=== PATIENT | female | born 1945 | race Hispanic/Latino ===

== ENCOUNTER 2017-07-28 06:45 | Day surgery (SDC) | payer OTHER, MEDICARE ==
[2017-07-26 11:20] VITALS: BP 124/59
[2017-07-26 11:28] LABS: BASOPHILS % (AUTO) 0.6 % (0.0-5.0); EOSINOPHILS % (AUTO) 1.4 % (0.0-8.0); HEMATOCRIT 40.5 % (36-48); LYMPHOCYTES % (AUTO) 26.9 % (21.0-51.0); MEAN CORPUSCULAR HEMOGLOBIN 30.4 pg (27.0-33.0); MEAN CORPUSCULAR HGB CONC 35.2 g/dL (32.0-36.0); MEAN CORPUSCULAR VOLUME 86.2 fL (79-99); MONOCYTES % (AUTO) 4.4 % (3.0-13.0); NEUTROPHILS % (AUTO) 66.7 % (40.0-77.0); PLATELET COUNT (AUTO) 334 K/uL (130-400); WHITE BLOOD COUNT (AUTO) 7.7 K/uL (4.8-10.8)
[2017-07-26 11:35] LABS: CREATININE 0.7 mg/dL (0.5-1.5)
[2017-07-26 11:45] LABS: INR 1.03 (0.85-1.15); PARTIAL THROMBOPLASTIN TIME 28.5 SEC (26.3-35.5); PROTHROMBIN TIME 10.8 SEC (9.6-11.6)
[2017-07-28] VITALS (11 sets, daily range): BP systolic 99–115; BP diastolic 40–64
[~2017-07-28] VITALS: Ht 160 cm; Wt 73.5 kg
[~2017-07-28 06:45] MED LIST: ASPI-1181 PO; CLON0.5T4 PO; DULO60CA63 PO; HYDR-2534 PO; INS7030 SQ; LEVO75TA10 PO; LISI2.5T2 PO; MELO-108 PO; METO25TA6 PO; MONT10TA24 PO; NAPR-1023 PO; OMEP40CA37 PO; PRAV40TA3 PO
[2017-07-28] MEDS ORDERED: SODIUM CHLORIDE 0.9% 1000ML 1,000 ML IV ONE (07:28)
[2017-07-28] MEDS ORDERED: INSULIN HUMULIN R 100 UNIT/ML 3ML IV SCH (09:00)
[2017-07-28] MEDS ORDERED: INSULIN HUMULIN R 100 UNIT/ML 3ML ONE (09:01)
[2017-07-28] MEDS ORDERED: BUPIVACAINE/PF 0.25% 30ML VIAL IJ ONE (10:10)
[2017-07-28] MEDS ORDERED: CEFAZOLIN 1GM / D5W 50ML 150 ML ONE (10:11)
[2017-07-28] MEDS ORDERED: LIDOCAINE HCL 1% MDV 50ML VIAL ONE (10:11)
[2017-07-28] MEDS ORDERED: MORPHINE SULFATE 4 MG/1ML SYG ONE (10:34)
[2017-07-28] MEDS ORDERED: ACETAMINOPHEN 325 MG TAB PO PRN ×2 (11:15)
[2017-07-28] MEDS ORDERED: ONDANSETRON HCL 4 MG/2 ML VIAL IV PRN (11:15)
== END 2017-07-28 15:35 | disposition home or self-care (01) ==
LOC: DAH 06:45
PROVIDERS: ATTEND Internal Medicine Cardiovascular Disease
DX: G45.9 Transient cerebral ischemic attack, unspecified (principal); I47.1 Supraventricular tachycardia; I48.91 Unspecified atrial fibrillation; Z79.84 Long term (current) use of oral hypoglycemic drugs; Z79.899 Other long term (current) drug therapy; Z79.4 Long term (current) use of insulin; I10 Essential (primary) hypertension; E78.5 Hyperlipidemia, unspecified; E11.9 Type 2 diabetes mellitus without complications; E03.9 Hypothyroidism, unspecified; F41.9 Anxiety disorder, unspecified; Z95.5 Presence of coronary angioplasty implant and graft; Z90.49 Acquired absence of other specified parts of digestive tract; Z90.710 Acquired absence of both cervix and uterus
CPT/HCPCS: 33282; 36415; 71045; 80048; 82948 ×2; 85025; 85610; 85730; 93005; A4606; C1764; J0690; J1815; J2270; J3490 ×2; J7030; 99152

== ENCOUNTER → 2018-06-29 | Outpatient (CLI) | payer MEDICARE ==
[~2018-06-29] MED LIST changes: +CLON0.5T12 PO; -CLON0.5T4 PO; +REGADENOSON 0.4 MG/5 ML PF SYG IVP SCH
== END | disposition home or self-care (01) ==
LOC: SHCH 07:40
PROVIDERS: ATTEND Internal Medicine Cardiovascular Disease
DX: R07.9 Chest pain, unspecified (principal)
CPT/HCPCS: 78452; 93017; 96374; A9500 ×2; J2785

== ENCOUNTER 2020-09-09 06:07 | Observation (INO) | payer OTHER, MEDICARE ==
[~2020-09-09] VITALS: Ht 160 cm; Wt 67.6 kg
[~2020-09-09 06:07] MED LIST changes: -ASPI-1181 PO; +ASPI-1443 PO; -CLON0.5T12 PO; +CLON0.5T4 PO; -DULO60CA63 PO; +DULO60CA64 PO; -HYDR-2534 PO; +HYDR50TA PO; -MONT10TA24 PO; +MONT10TA32 PO; +OMEP40CA13 PO; -OMEP40CA37 PO; -REGADENOSON 0.4 MG/5 ML PF SYG IVP SCH
[2020-09-09 06:23] LABS: BASOPHILS % (AUTO) 0.4 % (0.0-5.0); EOSINOPHILS % (AUTO) 3.5 % (0.0-8.0); HEMATOCRIT 43.5 % (36-48); LYMPHOCYTES % (AUTO) 31.1 % (21.0-51.0); MEAN CORPUSCULAR HGB CONC 33.1 g/dL (32.0-36.0); MEAN CORPUSCULAR VOLUME 87.5 fL (79-99); MONOCYTES % (AUTO) 7.2 % (3.0-13.0); NEUTROPHILS % (AUTO) 57.5 % (40.0-77.0); PLATELET COUNT (AUTO) 270 K/uL (130-400); RED BLOOD CELL COUNT(AUTO) 4.97 MIL/uL (4.00-5.50); RED CELL DISTRIBUTION WIDTH 12.4 % (11.0-15.5); WHITE BLOOD COUNT (AUTO) 6.8 K/uL (4.8-10.8)
[2020-09-09 06:38] LABS: INR 1.02 (0.85-1.15); PROTHROMBIN TIME 11.1 SEC (9.6-11.6)
[2020-09-09 06:39] LABS: PARTIAL THROMBOPLASTIN TIME 26.1 SEC (26.3-35.5)
[2020-09-09 06:42] LABS: ALBUMIN 3.6 g/dL (3.5-5.0); BILIRUBIN,TOTAL 0.6 mg/dL (0.2-1.0); CREATININE 0.6 mg/dL (0.5-1.5); POTASSIUM 3.3 mmol/L (3.5-5.1); TOTAL PROTEIN, SERUM 6.6 g/dL (6.0-8.3)
[2020-09-09] MEDS ORDERED: ACETAMINOPHEN 325 MG TAB PO PRN (08:15)
[2020-09-09] MEDS ORDERED: GLUCAGON 1MG KIT 1 MG ML IM PRN (08:15)
[2020-09-09] MEDS ORDERED: ONDANSETRON HCL 4 MG/2 ML VIAL IVP PRN (08:15)
[2020-09-09] MEDS ORDERED: HYDROMORPHONE HCL 0.5 MG/0.5 ML ML IVP PRN (08:15)
[2020-09-09] MEDS ORDERED: DEXTROSE 50%-WATER 50 ML DISP.SYRIN IV PRN (08:15)
[2020-09-09] MEDS ORDERED: ASPIRIN 81MG TAB.CHEW ONE (08:27)
[2020-09-09] MEDS ORDERED: PANTOPRAZOLE 40 MG/VIAL ONE (08:28)
[2020-09-09] MEDS: PANTOPRAZOLE 40 MG/VIAL IVP SCH (09:00)
[2020-09-09] MEDS: ASPIRIN 81 MG EC TAB PO SCH (09:00)
[2020-09-09] MEDS ORDERED: ACETAMINOPHEN 325 MG TAB ONE (10:34)
[2020-09-09] MEDS: INSULIN R PO SS1 SQ SCH ×3 (11:30→21:00)
[2020-09-09 14:22] LABS: CREATINE KINASE, TOTAL 43 U/L (21-232); MYOGLOBIN 35 ng/mL (10-92); TROPONIN I < 0.04 ng/mL (0.00-0.06)
[2020-09-09 23:28] LABS: CREATINE KINASE, TOTAL 39 U/L (21-232); MYOGLOBIN 36 ng/mL (10-92); TROPONIN I < 0.04 ng/mL (0.00-0.06)
[2020-09-09] MEDS ORDERED: HYDROMORPHONE HCL 0.5 MG/0.5 ML ML ONE (23:32)
[2020-09-10 04:42] LABS: BASOPHILS % (AUTO) 0.3 % (0.0-5.0); EOSINOPHILS % (AUTO) 2.1 % (0.0-8.0); HEMATOCRIT 42.5 % (36-48); MEAN CORPUSCULAR HEMOGLOBIN 29.4 pg (27.0-33.0); MEAN CORPUSCULAR HGB CONC 33.4 g/dL (32.0-36.0); MONOCYTES % (AUTO) 6.7 % (3.0-13.0); NEUTROPHILS % (AUTO) 58.5 % (40.0-77.0); PLATELET COUNT (AUTO) 260 K/uL (130-400); RED BLOOD CELL COUNT(AUTO) 4.83 MIL/uL (4.00-5.50); RED CELL DISTRIBUTION WIDTH 12.3 % (11.0-15.5)
[2020-09-10 05:07] LABS: CREATININE 0.6 mg/dL (0.5-1.5); MAGNESIUM 2.2 mg/dL (1.80-2.40); POTASSIUM 3.4 mmol/L (3.5-5.1); THYROID STIMULATING HORMONE 3.37 uIU/mL (0.36-3.74)
[2020-09-10 05:12] LABS: HEMOGLOBIN A1C 7.1 % (4.0-6.0)
[2020-09-10 05:21] VITALS: BP 133/70
[2020-09-10] MEDS: INSULIN R PO SS1 SQ SCH ×4 (06:09→20:06)
[2020-09-10] MEDS ORDERED: CLONAZEPAM 0.5 MG TABLET ONE (06:38)
[2020-09-10] MEDS ORDERED: CLONAZEPAM 1 MG TABLET PO SCH (06:45)
[2020-09-10] MEDS: POTASSIUM CHLORIDE 20 MEQ ERTAB PO SCH (07:09)
[2020-09-10 08:36] VITALS: BP 124/63
[2020-09-10] MEDS: PANTOPRAZOLE 40 MG/VIAL IVP SCH (09:00)
[2020-09-10] MEDS: ASPIRIN 81 MG EC TAB PO SCH (09:00)
[2020-09-10] MEDS ORDERED: REGADENOSON 0.4 MG/5 ML PF SYG IVP SCH (10:00)
[2020-09-10 17:22] VITALS: BP 137/77
[2020-09-10 19:59] VITALS: BP 124/54
[2020-09-10 23:37] VITALS: BP 127/73
[2020-09-11 04:09] VITALS: BP 133/77
[2020-09-11 04:45] LABS: BASOPHILS % (AUTO) 0.4 % (0.0-5.0); EOSINOPHILS % (AUTO) 1.7 % (0.0-8.0); HEMATOCRIT 42.4 % (36-48); LYMPHOCYTES % (AUTO) 23.5 % (21.0-51.0); MEAN CORPUSCULAR HEMOGLOBIN 29.8 pg (27.0-33.0); MEAN CORPUSCULAR VOLUME 87.8 fL (79-99); MONOCYTES % (AUTO) 8.3 % (3.0-13.0); NEUTROPHILS % (AUTO) 65.8 % (40.0-77.0); PLATELET COUNT (AUTO) 264 K/uL (130-400); RED BLOOD CELL COUNT(AUTO) 4.83 MIL/uL (4.00-5.50); RED CELL DISTRIBUTION WIDTH 12.4 % (11.0-15.5); WHITE BLOOD COUNT (AUTO) 7.1 K/uL (4.8-10.8)
[2020-09-11 05:02] LABS: CREATININE 0.7 mg/dL (0.5-1.5); POTASSIUM 3.8 mmol/L (3.5-5.1)
[2020-09-11] MEDS: POTASSIUM CHLORIDE 20 MEQ ERTAB PO SCH (05:14)
[2020-09-11] MEDS: INSULIN R PO SS1 SQ SCH ×2 (05:45→11:30)
[2020-09-11] MEDS ORDERED: CLONAZEPAM 1 MG TABLET PO SCH (08:30)
[2020-09-11] MEDS: PANTOPRAZOLE 40 MG/VIAL IVP SCH (09:19)
[2020-09-11] MEDS: ASPIRIN 81 MG EC TAB PO SCH (09:19)
[2020-09-11 09:30] VITALS: BP 144/87
[2020-09-11 14:33] VITALS: BP 136/51
== END 2020-09-11 16:12 | disposition home or self-care (01) ==
LOC: EDH 06:07 → EDHIP 07:38 → INTOOBSV 07:38 → 4CH 09-10 05:15
PROVIDERS: ADMIT Internal Medicine Nephrology; ATTEND Internal Medicine Nephrology
DX: R07.89 Other chest pain (principal); E11.9 Type 2 diabetes mellitus without complications; I10 Essential (primary) hypertension; E78.5 Hyperlipidemia, unspecified; F41.1 Generalized anxiety disorder; F32.9 Major depressive disorder, single episode, unspecified; I25.110 Atherosclerotic heart disease of native coronary artery with unstable angina pectoris; Z95.5 Presence of coronary angioplasty implant and graft; Z90.12 Acquired absence of left breast and nipple; Z79.82 Long term (current) use of aspirin; Z79.4 Long term (current) use of insulin; Z79.899 Other long term (current) drug therapy
CPT/HCPCS: 36415 ×3; 71045; 78452; 80048 ×2; 80053; 82550 ×3; 82948 ×8; 83036; 83735; 83874 ×2; 84443; 84484 ×3; 85025 ×3; 85610; 85730; 93005; 93017; 93306; 93356; 96374; 99285; A9500 ×2; C9113 ×2; G0378 ×52; J1170; J1815; J2785

== ENCOUNTER 2021-07-25 09:31 | Emergency (ER) | payer OTHER, MEDICARE ==
[~2021-07-25] VITALS: Ht 154.9 cm; Wt 68.0 kg
[~2021-07-25 09:31] MED LIST changes: +LISI2.5T13 PO; -LISI2.5T2 PO; -MELO-108 PO; +MONT-39 PO; -MONT10TA32 PO; -NAPR-1023 PO; -OMEP40CA13 PO; +OMEP40CA21 PO
[2021-07-25] MEDS ORDERED: PANTOPRAZOLE 40 MG/VIAL ONE (09:53)
[2021-07-25] MEDS ORDERED: PANTOPRAZOLE 40 MG/VIAL IVP SCH (10:00)
[2021-07-25 10:21] LABS: BASOPHILS % (AUTO) 0.2 % (0.0-5.0); EOSINOPHILS % (AUTO) 0.2 % (0.0-8.0); HEMATOCRIT 44.3 % (36-48); MEAN CORPUSCULAR HEMOGLOBIN 28.3 pg (27.0-33.0); MEAN CORPUSCULAR HGB CONC 32.1 g/dL (32.0-36.0); MEAN CORPUSCULAR VOLUME 88.2 fL (79-99); MONOCYTES % (AUTO) 4.5 % (3.0-13.0); NEUTROPHILS % (AUTO) 82.7 % (40.0-77.0); PLATELET COUNT (AUTO) 291 K/uL (130-400); RED BLOOD CELL COUNT(AUTO) 5.02 MIL/uL (4.00-5.50); RED CELL DISTRIBUTION WIDTH 11.9 % (11.0-15.5); WHITE BLOOD COUNT (AUTO) 8.5 K/uL (4.8-10.8)
[2021-07-25 10:35] LABS: CREATININE 0.7 mg/dL (0.5-1.5); POTASSIUM 4.3 mmol/L (3.5-5.1)
[2021-07-25 10:42] LABS: APPEARANCE,URINE Clear (CLEAR); BILIRUBIN,URINE Negative (NEGATIVE); COLOR,URINE Yellow (YELLOW); GLUCOSE, URINE (UA) >=1000 mg/dL (NEGATIVE); KETONES,URINE 40 mg/dL (NEGATIVE); LEUKOCYTE ESTERASE ,URINE Negative (NEGATIVE); NITRATE,URINE Negative (NEGATIVE); OCCULT BLOOD,URINE Negative (NEGATIVE); PROTEIN,URINE Negative (NEGATIVE)
[2021-07-25 10:45] LABS: TOTAL PROTEIN, SERUM 6.8 g/dL (6.0-8.3)
[2021-07-25] MEDS ORDERED: ACETAMINOPHEN 325 MG TAB ONE (11:16)
[2021-07-25 11:19] LABS: BACTERIA,URINE Rare /HPF (None Seen); RBC,URINE 0-1 /HPF (0-1); SQUAMOUS EPITHELIAL CELL,UR 0-2 /HPF (0-2); WBC,URINE None Seen /HPF (0-1)
[2021-07-25] MEDS ORDERED: ACETAMINOPHEN 325 MG TAB PO SCH (11:30)
[2021-07-25] MEDS ORDERED: FAMO20TA8 PO (11:44)
[2021-07-25 12:31] VITALS: BP 160/90
== END 2021-07-25 12:32 | disposition home or self-care (01) ==
LOC: EDH 09:31
DX: K21.9 Gastro-esophageal reflux disease without esophagitis (principal); F41.9 Anxiety disorder, unspecified; E03.9 Hypothyroidism, unspecified; I10 Essential (primary) hypertension; Z20.822 Contact with and (suspected) exposure to COVID-19; F32.9 Major depressive disorder, single episode, unspecified; Z79.82 Long term (current) use of aspirin; Z79.899 Other long term (current) drug therapy
CPT/HCPCS: 36415; 80053; 81001; 83690; 84484; 85025; 87635; 93005; 96374; 99284; C9113; C9803

== ENCOUNTER 2022-01-11 23:52 | Emergency (ER) | payer OTHER, MEDICARE ==
[~2022-01-11 23:52] MED LIST changes: +FAMO20TA8 PO
[2022-01-12 00:38] LABS: BASOPHILS % (AUTO) 0.3 % (0.0-5.0); EOSINOPHILS % (AUTO) 2.2 % (0.0-8.0); HEMATOCRIT 35.5 % (36-48); LYMPHOCYTES % (AUTO) 26.3 % (21.0-51.0); MEAN CORPUSCULAR HEMOGLOBIN 29.4 pg (27.0-33.0); MEAN CORPUSCULAR HGB CONC 33.2 g/dL (32.0-36.0); MEAN CORPUSCULAR VOLUME 88.5 fL (79-99); MONOCYTES % (AUTO) 10.4 % (3.0-13.0); NEUTROPHILS % (AUTO) 60.5 % (40.0-77.0); PLATELET COUNT (AUTO) 230 K/uL (130-400); RED BLOOD CELL COUNT(AUTO) 4.01 MIL/uL (4.00-5.50); RED CELL DISTRIBUTION WIDTH 12.4 % (11.0-15.5); WHITE BLOOD COUNT (AUTO) 6.9 K/uL (4.8-10.8)
[2022-01-12 00:47] LABS: CREATININE 0.5 mg/dL (0.5-1.5); POTASSIUM 3.7 mmol/L (3.5-5.1)
[2022-01-12 00:51] LABS: ALBUMIN 3.2 g/dL (3.5-5.0); TOTAL PROTEIN, SERUM 6.1 g/dL (6.0-8.3)
[2022-01-12] MEDS ORDERED: ZOSYN 3.375GM +NS 50ML IV SCH (03:00)
[2022-01-12] MEDS ORDERED: LACTULOSE 20 GM/30 ML UDCUP PO ONE (03:00)
[2022-01-12] MEDS ORDERED: KETOROLAC 15MG/ML VIAL (15MG/ML) IV ONE (03:00)
[2022-01-12] MEDS ORDERED: AMOX1TAB16 PO (04:50)
[2022-01-12] MEDS ORDERED: IBUP-2070 PO (04:50)
[2022-01-12 05:18] VITALS: BP 124/58
== END 2022-01-12 05:44 | disposition home or self-care (01) ==
LOC: EDH 23:52
DX: K57.32 Diverticulitis of large intestine without perforation or abscess without bleeding (principal); E03.9 Hypothyroidism, unspecified; I10 Essential (primary) hypertension; K21.9 Gastro-esophageal reflux disease without esophagitis; Z79.1 Long term (current) use of non-steroidal anti-inflammatories (NSAID); Z79.82 Long term (current) use of aspirin; Z79.899 Other long term (current) drug therapy
CPT/HCPCS: 99284; 80053; 83690; 85025; 36415; 74176; 96365; 96375; J2543; J1885

== ENCOUNTER 2022-08-18 08:24 | Emergency (ER) | payer OTHER, MEDICARE ==
[~2022-08-18] VITALS: Ht 160 cm; Wt 53.1 kg
[~2022-08-18 08:24] MED LIST changes: +AMOX1TAB16 PO; +IBUP-2070 PO
[2022-08-18] MEDS ORDERED: LACTATED RINGERS 1000ML 1,000 ML IV ONE (09:00)
[2022-08-18] MEDS ORDERED: PANTOPRAZOLE 40 MG/VIAL IVP ONE (09:00)
[2022-08-18] MEDS ORDERED: ONDANSETRON 4MG INJ IVP ONE (09:00)
[2022-08-18 09:12] LABS: BASOPHILS % (AUTO) 0.2 % (0.0-5.0); EOSINOPHILS % (AUTO) 0.1 % (0.0-8.0); HEMATOCRIT 47.9 % (36-48); LYMPHOCYTES % (AUTO) 4.3 % (21.0-51.0); MEAN CORPUSCULAR HEMOGLOBIN 29.4 pg (27.0-33.0); MEAN CORPUSCULAR HGB CONC 32.4 g/dL (32.0-36.0); MEAN CORPUSCULAR VOLUME 90.7 fL (79-99); MONOCYTES % (AUTO) 1.9 % (3.0-13.0); PLATELET COUNT (AUTO) 186 K/uL (130-400); RED BLOOD CELL COUNT(AUTO) 5.28 MIL/uL (4.00-5.50); RED CELL DISTRIBUTION WIDTH 13.1 % (11.0-15.5); WHITE BLOOD COUNT (AUTO) 8.3 K/uL (4.8-10.8)
[2022-08-18 09:23] LABS: CREATININE 0.7 mg/dL (0.5-1.5); POTASSIUM 4.5 mmol/L (3.5-5.1)
[2022-08-18 09:27] LABS: ALBUMIN 4.3 g/dL (3.5-5.0)
[2022-08-18 10:33] LABS: APPEARANCE,URINE CLEAR (CLEAR); BILIRUBIN,URINE NEGATIVE (NEGATIVE); COLOR,URINE LIGHT-YELLOW (YELLOW); GLUCOSE, URINE (UA) >=1000 mg/dL (NEGATIVE); KETONES,URINE 150 mg/dL (NEGATIVE); LEUKOCYTE ESTERASE ,URINE NEGATIVE Leu/uL (NEGATIVE); NITRATE,URINE NEGATIVE (NEGATIVE); OCCULT BLOOD,URINE NEGATIVE (NEGATIVE); PH,URINE 5.5 (5.0-8.0); PROTEIN,URINE NEGATIVE (NEGATIVE); UROBILINOGEN,URINE 0.2 mg/dL (0.2-1.0)
[2022-08-18 10:36] LABS: MUCUS,URINE RARE LPF (None Seen); SQUAMOUS EPITHELIAL CELL,UR RARE /HPF (0-2); WBC,URINE 0-1 /HPF (0-1)
[2022-08-18] MEDS ORDERED: PANT40TA55 PO (10:48)
[2022-08-18 11:14] VITALS: BP 134/65
== END 2022-08-18 11:28 | disposition home or self-care (01) ==
LOC: EDH 08:24
DX: K52.9 Noninfective gastroenteritis and colitis, unspecified (principal); E86.0 Dehydration; I10 Essential (primary) hypertension; E03.9 Hypothyroidism, unspecified; F32.A Depression, unspecified; K21.9 Gastro-esophageal reflux disease without esophagitis; F41.9 Anxiety disorder, unspecified; Z79.899 Other long term (current) drug therapy
CPT/HCPCS: 99284; 96374; 96361; 96375; 82550; 84484; 80053; 83690; 85025; 82948; 81001; 36415; 93005; J7120; J2405; C9113

== ENCOUNTER → 2023-02-02 | Outpatient (CLI) | payer OTHER, MEDICARE ==
[~2023-02-02] MED LIST changes: +PANT40TA55 PO
[2023-02-03 13:08] LABS: ALBUMIN 3.6 g/dL (3.5-5.0); BILIRUBIN,TOTAL 0.4 mg/dL (0.2-1.0); CREATININE 0.8 mg/dL (0.5-1.5); POTASSIUM 4.4 mmol/L (3.5-5.1); THYROID STIMULATING HORMONE 8.27 uIU/mL (0.36-3.74); TOTAL PROTEIN, SERUM 6.7 g/dL (6.0-8.3)
== END | disposition home or self-care (01) ==
LOC: LAB 14:29
PROVIDERS: ATTEND Internal Medicine Cardiovascular Disease
DX: E03.9 Hypothyroidism, unspecified (principal)
CPT/HCPCS: 36415; 80053; 80061; 84443

== ENCOUNTER 2023-11-10 05:56 | Day surgery (SDC) | payer MEDICARE ==
[2023-11-08 13:24] LABS: BASOPHILS # (AUTO) 0.02 K/uL (0.00-0.20); BASOPHILS % (AUTO) 0.3 % (0.0-5.0); EOSINOPHILS # (AUTO) 0.09 K/uL (0.00-0.70); EOSINOPHILS % (AUTO) 1.6 % (0.0-8.0); HEMATOCRIT 42.4 % (36-48); IMMATURE GRANULOCYTE ABSOLUTE 0.02 K/uL (0-1); LYMPHOCYTES # (AUTO) 1.7 K/uL (1.0-4.8); LYMPHOCYTES % (AUTO) 30.1 % (21.0-51.0); MEAN CORPUSCULAR HEMOGLOBIN 29.2 pg (27.0-33.0); MEAN CORPUSCULAR HGB CONC 31.8 g/dL (32.0-36.0); MEAN CORPUSCULAR VOLUME 91.8 fL (79-99); MONOCYTES # (AUTO) 0.5 K/uL (0.1-1.0); MONOCYTES % (AUTO) 7.9 % (3.0-13.0); NEUTROPHILS # (AUTO) 3.5 K/uL (1.8-7.7); NEUTROPHILS % (AUTO) 59.8 % (40.0-77.0); PLATELET COUNT (AUTO) 237 K/uL (130-400); RED BLOOD CELL COUNT(AUTO) 4.62 MIL/uL (4.00-5.50); RED CELL DISTRIBUTION WIDTH 12.9 % (11.0-15.5); WHITE BLOOD COUNT (AUTO) 5.8 K/uL (4.8-10.8)
[2023-11-08 13:31] LABS: CREATININE 0.8 mg/dL (0.5-1.0); POTASSIUM 4.2 mmol/L (3.5-5.1)
[2023-11-08 13:33] LABS: INR <= 0.93 (0.85-1.15); PROTHROMBIN TIME 10.9 SEC (9.6-11.6)
[2023-11-08 13:34] LABS: PARTIAL THROMBOPLASTIN TIME 29.6 SEC (26.3-35.5)
[2023-11-08 13:55] VITALS: BP 124/60; PULSE 63; RESP 18
[~2023-11-10] VITALS: Ht 160 cm; Wt 64.3 kg
[~2023-11-10 05:56] MED LIST changes: -AMOX1TAB16 PO; -ASPI-1443 PO; +ATOR40TA69 PO; +BUSP7.5T7 PO; +CELE200 PO; -CLON0.5T4 PO; +DULO30CA52 PO; -DULO60CA64 PO; +EMPA25TA PO; -FAMO20TA8 PO; +GABA300C PO; -HYDR50TA PO; -IBUP-2070 PO; -INS7030 SQ; +INSU100I24 SQ; -LEVO75TA10 PO; -METO25TA6 PO; +METO50TA18 PO; -MONT-39 PO; -OMEP40CA21 PO; +PANT40TA54 PO; -PANT40TA55 PO; +PIOG15TA6 PO; -PRAV40TA3 PO; +ROPI4TAB41 PO; +TRAM50TA4 PO
[2023-11-10 06:30] VITALS: BP 140/66; PULSE 55; RESP 18
[2023-11-10] MEDS ORDERED: 0.9%NACL 1000ML 1,000 ML IV ONE (07:08)
[2023-11-10] MEDS ORDERED: LIDOCAINE HCL 400MG/20ML VIAL ONE (07:13)
[2023-11-10] MEDS ORDERED: SODIUM BICARB 50MEQ 50ML VIAL 50 ML ONE (07:13)
[2023-11-10 08:23] VITALS: BP 142/62; PULSE 62; RESP 17
[2023-11-10] MEDS ORDERED: ACETAMINOPHEN 500 MG TABLET PO ONE (08:45)
== END 2023-11-10 08:50 | disposition home or self-care (01) ==
LOC: DAH 05:56
PROVIDERS: ATTEND Internal Medicine Cardiovascular Disease
DX: T82.598A Other mechanical complication of other cardiac and vascular devices and implants, initial encounter (principal); I10 Essential (primary) hypertension; E11.40 Type 2 diabetes mellitus with diabetic neuropathy, unspecified; I49.1 Atrial premature depolarization; E78.5 Hyperlipidemia, unspecified; E03.9 Hypothyroidism, unspecified; F41.9 Anxiety disorder, unspecified; Z90.49 Acquired absence of other specified parts of digestive tract; Z98.41 Cataract extraction status, right eye; Z98.42 Cataract extraction status, left eye; Z90.710 Acquired absence of both cervix and uterus; Z98.890 Other specified postprocedural states; Z82.49 Family history of ischemic heart disease and other diseases of the circulatory system; Z79.01 Long term (current) use of anticoagulants; Y83.8 Other surgical procedures as the cause of abnormal reaction of the patient, or of later complication, without mention of misadventure at the time of the procedure; Y92.89 Other specified places as the place of occurrence of the external cause
CPT/HCPCS: 33286; 36415; 80048; 82948; 85025; 85610; 85730; 93005; A4606; J3490; J7030; A4215; A4216; A4221; A4222; A4223; A4663

== ENCOUNTER → 2024-05-22 | Outpatient (CLI) | payer MEDICARE ==
[2024-05-22 12:43] LABS: ALBUMIN 3.9 g/dL (3.5-5.0); BILIRUBIN,TOTAL 0.3 mg/dL (0.2-1.0); CREATININE 0.7 mg/dL (0.5-1.0); TOTAL PROTEIN, SERUM 6.8 g/dL (6.0-8.3)
== END | disposition home or self-care (01) ==
LOC: LAB 08:20
PROVIDERS: ATTEND Internal Medicine Cardiovascular Disease
DX: I10 Essential (primary) hypertension (principal); I25.10 Atherosclerotic heart disease of native coronary artery without angina pectoris; E78.5 Hyperlipidemia, unspecified
CPT/HCPCS: 36415; 80053; 80061